=== PATIENT | female | born 2000 | race Two or more races ===

== ENCOUNTER 2025-08-23 10:55 | Emergency (ER) | payer OTHER, SELFPAY ==
--- NOTE | ~2025-08-23 | XR_ITS ---
EXAMINATION: XR CHEST CLINICAL INFORMATION: cough, fever COMPARISON: None available. TECHNIQUE: PA and lateral views FINDINGS: No hyperinflation. No consolidation, pleural effusion or pneumothorax. Cardiomediastinal silhouette size is normal. Osseous structures are intact. Patient's large body habitus/obesity. XR/XR chest 2V IMPRESSION: No acute airspace disease. Electronically signed by: Mihir Muhammad MD 08/23/2025 11:32 AM EDT
[2025-08-23 11:11] VITALS: BP 119/85; PULSE 100; RESP 20; TEMP 36.8; O2SAT 98; BMI 29.4
--- NOTE | 2025-08-23 11:12 | ED.GENADULT ---
HPI - General Adult General Chief complaint: Upper Respiratory Symptoms Stated complaint: chest tightness, SOB, fever Related Data Allergies Allergy/AdvReac Type Severity Reaction Status Date / Time nut - unspecified Allergy Anaphylaxis Verified 08/23/25 11:13 [facility] Social History Social History Advance Directives: No Advance Directives Information Provided: No Do you have a plan to hurt others: No Plan Physical Exam ED Vital Signs: BMI result Body Mass Index 29.4 Course Course Course Narrative: RME, this is a rapid medical exam performed by Derrick Conteh please refer to primary provider for complete H&P- 25-year-old female with a history of asthma presents for evaluation of cough, congestion, shortness of breath. Symptoms started Friday, she reports that she is out of her inhalers. Plan for viral swabs and a chest x-ray. Medical Decision Making Lab Data Labs: Lab Results 08/23/25 Range/Units 11:59 COVID-19 (JUSTIN) Negative (Negative) COVID-19 Clin Com See Note Influenza Type A (TERE) Negative (Negative) Influenza Type B (TERE) Negative (Negative) Influenza A & B Note See Note Discharge Plan Discharge Clinical Impression: Upper respiratory infection Patient Disposition: Left W/O Completing Treatment Discharge Date/Time: 08/23/25 17:11
[2025-08-23 12:21] LABS: COVID-19 Test Negative (Negative); IDNOW Serial# 55D5AD1C
[2025-08-23 12:26] LABS: IDNOW Serial# 58CA691E; Influenza B2 Negative (Negative)
== END 2025-08-23 17:11 | disposition left against medical advice (07) ==
PROVIDERS: Physician Assistant; Emergency Provider Emergency Medicine
DX: J06.9 Acute upper respiratory infection, unspecified (principal); R06.02 Shortness of breath; R50.9 Fever, unspecified; R07.9 Chest pain, unspecified; Z03.818 Encounter for observation for suspected exposure to other biological agents ruled out
CPT/HCPCS: 71046; 87502; 87635; 99281; 99283

== ENCOUNTER → 2025-08-23 11:12 | Outpatient (BNV) | payer OTHER, SELFPAY | PROVIDERS: Visit Provider Radiology Diagnostic Radiology | DX: R05.9 Cough, unspecified (principal); R50.9 Fever, unspecified | CPT/HCPCS: 71046 ==